=== PATIENT | male | born 1940 | race Hispanic/Latino ===

== ENCOUNTER 2017-06-28 19:27 | Inpatient (IN) | payer MEDICARE ==
[2017-06-28 19:37] VITALS: BMI 23.2
[2017-06-28] MEDS ORDERED: Sodium Chloride 0.9% 1,000 ML IV ONE (19:40)
[2017-06-28] MEDS ORDERED: Cefepime IV 1 gm in Dextrose 1 GM/50 ML BAG IVPB STA (19:48)
[2017-06-28] MEDS ORDERED: Ciprofloxacin 400mg/200ml D5W 400 MG/200 ML BAG IV STA (19:49)
[2017-06-28] MEDS ORDERED: Vancomycin 1 GM 1 GM/250 ML BAG IV SCH (20:00)
[2017-06-28 20:04] LABS: BASO % 0.1 % (0.0-2.0); EOS # 0.3 K/uL (0.0-0.7); MONO # 1.5 K/uL (0.0-0.8)
[2017-06-28 20:11] LABS: RBC URINE 3 /hpf (0-3); TRANSITIONAL EPITHIAL < 1 /hpf (0-3); URINE BACTERIA RARE (<OCC); URINE BILIRUBIN NEGATIVE (NEGATIVE); URINE BLOOD NEGATIVE (NEGATIVE); URINE COLOR Yellow (YELLOW); URINE GLUCOSE (UA) NORMAL (Normal); URINE KETONE NEGATIVE (NEGATIVE); URINE LEUKOCYTE ESTERASE NEG Leu/uL (Negative); URINE PROTEIN NEGATIVE (NEGATIVE); URINE UROBILINOGEN NORMAL mg/dL (0.2-1.0); WBC URINE 4 /hpf (0-5)
[2017-06-28 20:12] LABS: INR 1.7
[2017-06-28 20:13] LABS: EOS % 0.6 % (0.0-4.0); LYMPH % 4.5 % (20.0-40.0); MEAN CELL VOLUME 82.7 fL (80.0-94.0); MEAN CORPUSCULAR HEMOGLOBIN 27.1 pg (27.0-31.0); MEAN CORPUSCULAR HGB CONC 32.7 g/dL (33.0-37.0); MEAN PLATELET VOLUME 6.9 fL (7.2-11.7); MONO % 3.4 % (0.0-10.0); PLATELET COUNT 643 K/uL (130-400); RED CELL DISTRIBUTION WIDTH 16.9 % (11.5-14.5)
[2017-06-28 20:15] LABS: CHLORIDE 106 mmol/L (98-107); SODIUM 142 mmol/L (132-148)
[2017-06-28 20:16] LABS: WHITE BLOOD COUNT 44.7 K/uL (4.8-10.8)
[2017-06-28 20:17] LABS: ALB/GLOB RATIO 0.8 (1.0-2.1); ALKALINE PHOSPHATASE 199 U/L (38-126); ALT/SGPT 61 U/L (21-72); AST/SGOT 104 U/L (17-59); BILIRUBIN,TOTAL 0.9 mg/dL (0.2-1.3); BLOOD UREA NITROGEN 14 mg/dL (9-20); CARBON DIOXIDE 25 mmol/L (22-30); GFR AFRICAN-AMERICAN > 60; TOTAL PROTEIN 6.6 g/dL (6.3-8.3)
[2017-06-28 20:18] LABS: CALCIUM 8.7 mg/dl (8.6-10.4); GLUCOSE,RANDOM 102 mg/dL (75-110)
--- NOTE | 2017-06-28 20:23 | C.PDOC ---
History Of Present Illness 76 year old male who presents to the ER after he fell from a standing position while on his way into his house. Patient recently spent 2 of the last 3 weeks in [place] for evaluation of widely metastatic primary lung CA and known C2 lesions. Patient was rigoring and tachycardic prior to discharge from [place] this afternoon and fell at home while standing, landing on his buttock and striking the back of his head. Patient arrived via EMS with a c-collar in place and is complaining of neck pain and right groin pain; denies LOC, nausea, or vomiting. - HPI Time Seen by Provider: 06/28/17 19:30 Chief Complaint (Nursing): Trauma History Per: Patient History/Exam Limitations: no limitations Onset/Duration Of Symptoms: Days Injury Occurred (Timing): Just Before Arrival Location Of Injury: Right: Buttock, Left: Buttock, Posterior: Head Recent travel outside of the [place]: No Past Medical History Reviewed: Historical Data, Nursing Documentation, Vital Signs Vital Signs: Last Vital Signs Temp 98.0 F 06/28/17 21:19 Pulse 87 06/28/17 22:33 Resp 23 06/28/17 22:33 BP 77/42 L 06/28/17 22:33 Pulse Ox 94 L 06/28/17 22:33 - Medical History PMH: Atrial Fibrillation Surgical History: No Surg Hx Family History: States: Unknown Family Hx - Social History Hx Alcohol Use: Yes Hx Substance Use: No - Immunization History Hx Tetanus Toxoid Vaccination: Yes Hx Influenza Vaccination: No Hx Pneumococcal Vaccination: No Review Of Systems Constitutional: Negative for: Fever, Chills Gastrointestinal: Negative for: Nausea, Vomiting Genitourinary: Positive for: Other (Groin pain) Musculoskeletal: Positive for: Neck Pain Neurological: Negative for: Weakness, Numbness Physical Exam - Physical Exam Appears: Non-toxic, Other (Elderly. Cachectic) Skin: Normal Color, Warm, Dry Head: Atraumatic, Normacephalic Oral Mucosa: Moist Neck: Normal, No Midline Cervical Tenderness, No Paracervical Tenderness, Supple Chest: Symmetrical, No Tenderness Cardiovascular: Rhythm Regular, No Murmur Respiratory: Decreased Breath Sounds (Left base), No Rales, No Rhonchi, No Wheezing Gastrointestinal/Abdominal: Soft, No Tenderness, Ascites, Other (Thin) Rectal: Deferred (Due to positioning) Extremity: Normal ROM (x4), Other (No lesions to lower extremities) Neurological/Psych: Oriented x3, Normal Speech, Normal Cognition ED Course And Treatment - Laboratory Results Result Diagrams: 06/28/17 19:55 06/28/17 19:55 O2 Sat by Pulse Oximetry: 86 (Room air) - CT Scan/US CT Head Other Rad Studies (CT/US): Read By Radiologist, Radiology Report Reviewed CT/US Interpretation: IMPRESSION: 1. No acute findings. 2. Mild chronic microvascular ischemic change in the deep white matter CT Cervical Spine Other Rad Studies (CT/US): Read By Radiologist, Radiology Report Reviewed CT/US Interpretation: IMPRESSION: 1. Type II fracture of the dens.THIS REPORT CONTAINS FINDINGS THAT MAY BE CRITICAL TO. PATIENT CARE. The findings were verbally communicated via telephone conference with Syeda Ritchie at 9:48 PM EDT on 06/28/2017. The findings were acknowledged and understood. 2. Generalized cervical spondylosis including mild foraminal stenosis on the right at C5-6 and C6-7. CT Abd/Pel Other Rad Studies (CT/US): Read By Radiologist, Radiology Report Reviewed CT/US Interpretation: IMPRESSION: 1 . Fracture of the inferior pubic ramus on the right. 2. 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 3. Soft tissue mass in the lateral aspect of the left thigh suspicious for a metastatic lesion. 4.. Ascites with anasarca. 5. Left lower lobe consolidation with pulmonary parenchymal necrosis/liquefaction and tumor. extension into the left mainstem bronchus. 6. Scatter colonic diverticula CT Chest Other Rad Studies (CT/US): Read By Radiologist, Radiology Report Reviewed CT/US Interpretation: IMPRESSION: 1. Left lower lobe consolidation with evidence of pulmonary parenchymal necrosis and tumor. extension into left mainstem bronchus. 2. Air trapping in the left lung secondary to #1. 3. Interstitial lung disease bilaterally with evidence of interstitial fibrosis. Small bilateral pleural. effusions. Progress Note: CT chest/abd/pel/head/spine, EKG, CXR, and cultures ordered. Tylenol, cefepime, ciprofloxacin, lovenox, toradol, vancomycin, and IV fluids administered. Medical Decision Making Medical Decision Making: sepsis, shaking, rigors, much elevated leukocytosis of 45K without recent chemo/ Neuopogen Broad spectrum abx empirically avoiding PCN allergy New inferior R pubic ramis fx subacute Dens Type II fracture (? lytic lesion/mets, prior eval @ [facility]) keep C-collar in place DNR Consider theraputic L lung paracentesis for symptoms of SOB Disposition Doctor Will See Patient In The: Hospital Counseled Patient/Family Regarding: Studies Performed, Diagnosis - Disposition Disposition: HOSPITALIZED Disposition Time: 21:35 Condition: GUARDED - Clinical Impression Clinical Impression: Pubic ramus fracture, Lung cancer, primary, with metastasis from lung to other site, Sepsis, Cervical spine fracture - Scribe Statement The provider has reviewed the documentation as recorded by the Scribbibiana Desir All medical record entries made by the Scribe were at my direction and personally dictated by me. I have reviewed the chart and agree that the record accurately reflects my personal performance of the history, physical exam, medical decision making, and the department course for this patient. I have also personally directed, reviewed, and agree with the discharge instructions and disposition.
[2017-06-28] MEDS ORDERED: Vancomycin 1 gm/NS 200 ml 1 GM/200 ML BAG IVPB STA (20:25)
[2017-06-28] MEDS ORDERED: Iodixanol 320 MG/ML 100 ML BOTTLE IV ONE (20:29)
[2017-06-28] MEDS ORDERED: Vancomycin 1 GM 1 GM/250 ML BAG IV ONE (20:30)
[2017-06-28 20:31] LABS: VENOUS BLOOD GAS BASE EXCESS -3.2 mmol/L (0.0-2.0); VENOUS BLOOD GAS PCO2 55 mmHg (40-60); VENOUS BLOOD PH 7.26 (7.32-7.43)
[2017-06-28] MEDS ORDERED: Ciprofloxacin 400mg/200ml D5W 400 MG/200 ML BAG IVPB ONE (21:09)
[2017-06-28 21:29] LABS: MYELOCYTE 3 % (0-0); NEUTROPHIL 88 % (50-75); TOTAL CELLS COUNTED 100
[2017-06-28] MEDS ORDERED: Enoxaparin 40 mg Syringe SC STA (21:36)
[2017-06-28] MEDS ORDERED: Vancomycin 1 GM 1 GM/250 ML BAG IVPB ONE (21:44)
--- NOTE | 2017-06-28 21:49 | CT ---
EXAM: CT Cervical Spine Without Intravenous Contrast EXAM DATE/TIME: Exam ordered 06/28/2017 7:42 PM CLINICAL HISTORY: 76 years old, male; Injury or trauma; Fall; Initial encounter; Blunt trauma; Additional info: Lung ca with mets, fell back from standing TECHNIQUE: Axial computed tomography images of the cervical spine without intravenous contrast. All CT scans at this facility use one or more dose reduction techniques, viz.: automated exposure control; ma/kV adjustment per patient size (including targeted exams where dose is matched to indication; i.e. head); or iterative reconstruction technique. Coronal and sagittal reformatted images were created and reviewed. COMPARISON: No relevant prior studies available. FINDINGS: Vertebrae: Unremarkable. No acute fracture. Discs/spinal canal/neural foramina: C1 2: There is narrowing of the joint space between the anterior arch of C1 and the dens. Subchondral sclerosis and marginal osteophyte formation is present. There is beam hardening artifact noted at the level of C1 2 due to dental or fillings. There is a disruption in the cortical margin along the anterior aspect of the dens which suggests a type 2 nondisplaced dens fracture. C2-3: There is narrowing of the intervertebral disc space. There is ankylosis of the facet joints on the left and partial ankylosis on the right. C3-4: There is narrowing of the intervertebral disc space with marginal osteophyte formation, subchondral cyst formation and endplate sclerosis. Minimal circumferential annulus bulge. There is mild uncovertebral hypertrophy. C4-5: Marginal osteophyte formation is noted. Minimal annulus bulge. No stenosis. C5-6: There is narrowing of the intervertebral disc space with him marginal osteophyte formation, endplate sclerosis, subchondral cyst formation and marginal osteophyte formation. There is uncovertebral hypertrophy. There is narrowing of the intervertebral foramen on the right. C6-7: There is narrowing of the intervertebral disc space with endplate sclerosis and subchondral cyst formation. There is uncovertebral hypertrophy. There is narrowing of the intervertebral foramen on the right. No spinal canal stenosis. Soft tissues: Unremarkable. Lung apices: There is biapical pleural thickening. There is thickening of the intralobular septa with interstitial fibrosis evident particularly on the right. IMPRESSION: 1. Type II fracture of the dens.THIS REPORT CONTAINS FINDINGS THAT MAY BE CRITICAL TO PATIENT CARE. The findings were verbally communicated via telephone conference with Norberto Ritchie at 9:48 PM EDT on 06/28/2017. The findings were acknowledged and understood. 2. Generalized cervical spondylosis including mild foraminal stenosis on the right at C5-6 and C6-7. . Images were attached to this report and are available at [email or web address]
[2017-06-28] MEDS ORDERED: Enoxaparin 40 mg Syringe ONE (21:51)
[2017-06-28] MEDS ORDERED: Sodium Chloride 0.9% 1,000 ML IV SCH (22:30)
[2017-06-28 23:01] LABS: VENOUS BLOOD GAS PCO2 36 mmHg (40-60); VENOUS BLOOD PH 7.46 (7.32-7.43)
[2017-06-29] MEDS ORDERED: Ciprofloxacin 400mg/200ml D5W 400 MG/200 ML BAG IVPB SCH (06:00)
[2017-06-29] MEDS ORDERED: metroNIDAZOLE IV 500 mg/100 ml 500 MG/100 ML BAG IVPB SCH (06:15)
[2017-06-29 07:41] LABS: BASO # 0.1 K/uL (0.0-0.2); BASO % 0.4 % (0.0-2.0); EOS # 0.4 K/uL (0.0-0.7); EOS % 1.2 % (0.0-4.0); HEMATOCRIT 24.6 % (35.0-51.0); LYMPH # 1.1 K/uL (1.0-4.3); LYMPH % 3.4 % (20.0-40.0); MEAN CELL VOLUME 81.5 fL (80.0-94.0); MEAN CORPUSCULAR HEMOGLOBIN 26.2 pg (27.0-31.0); MEAN CORPUSCULAR HGB CONC 32.1 g/dL (33.0-37.0); MONO # 1.2 K/uL (0.0-0.8); MONO % 3.7 % (0.0-10.0); PLATELET COUNT 470 K/uL (130-400); RED CELL DISTRIBUTION WIDTH 16.5 % (11.5-14.5)
[2017-06-29 07:52] LABS: ALB/GLOB RATIO 0.7 (1.0-2.1); ALKALINE PHOSPHATASE 123 U/L (38-126); ALT/SGPT 51 U/L (21-72); AST/SGOT 52 U/L (17-59); BILIRUBIN,TOTAL 0.5 mg/dL (0.2-1.3); BLOOD UREA NITROGEN 16 mg/dL (9-20); CALCIUM 7.6 mg/dl (8.6-10.4); CARBON DIOXIDE 22 mmol/L (22-30); CHLORIDE 107 mmol/L (98-107); GFR AFRICAN-AMERICAN > 60; GLUCOSE,RANDOM 78 mg/dL (75-110); POTASSIUM 3.6 mmol/L (3.6-5.2); SODIUM 137 mmol/L (132-148)
--- NOTE | 2017-06-29 08:40 | RAD ---
PROCEDURE: CHEST RADIOGRAPH, 1 VIEW HISTORY: SOB COMPARISON: Chest CT also performed 06/28/2017. FINDINGS: LUNGS: Infiltrate at the right upper lung zone is appreciated with none at the base. The left hemidiaphragms completely silhouetted with hazy density at the mid to inferior left lung zone appearing less dense than expected based on extensive pathology noted in CT here, in what may reflect neoplasm and postobstructive atelectasis. Please see separate CT chest and pelvis report 06/28/2017. PLEURA: No right pleural effusion. A small pleural effusion not excluded. No pneumothorax bilaterally. CARDIOVASCULAR: Cardiac silhouette appears mildly prominent. No pulmonary vascular congestion appreciated. OSSEOUS STRUCTURES: No significant abnormalities. VISUALIZED UPPER ABDOMEN: Normal. OTHER FINDINGS: None. IMPRESSION: Bilateral pulmonary infiltrates identified at the superior right lung zone and at the mid to inferior left lung zone though neoplasm not excluded based on chest CT 06/28/2017 the left base. Please see separate report. No right pleural effusion and minimal left pleural effusion not excluded.
--- NOTE | 2017-06-29 08:51 | CT ---
CT chest, abdomen, and pelvis with IV contrast Indication: Widely metastatic lung cancer Technique: Contiguous axial images of the chest, abdomen, and pelvis. Coronal and Sagittal reformats generated and reviewed. This CT exam was performed using 1 or more of the following dose reduction techniques: Automated exposure control, adjustment of the MAA and/or kV according to patient size, and/or use of iterative reconstruction technique. Contrast: 100 mL Visipaque 320 IV. Radiation dose: Total exam DLP = 677.24 MGy-cm. Comparison: Chest x-ray performed 06/28/17 Findings: Visualized portions of the inferior thyroid gland demonstrates coarse calcifications in the left lower pole. Partially imaged enlarged vessels within the soft tissues of the neck. The mediastinal and hilar vascular structures appear within normal limits. The heart appears within normal limits of size. Sub cm enhancing prevascular lymph node. Sub cm mediastinal lymph nodes, nonspecific. Abrupt cut off of the left mainstem bronchus with evidence of tumor extension into the bronchus. Heterogeneous large left lower lobe consolidation with regions of suspected necrosis/liquefaction. Hyperlucency within the left upper lobe and lingula as compared to the right. Interlobular septal thickening. Peripheral fibrotic changes bilaterally. Paraseptal type emphysema within the right medial upper lobe. Right middle lobe fibrotic changes. Small bilateral pleural effusions. No pneumothorax. Examination limited by patient motion as well as paucity of intra-abdominal and intrapelvic fat. 3.3 cm right adrenal mass appears heterogeneous with region of possible necrosis, indeterminate but worrisome for metastatic disease. The left adrenal gland appears unremarkable. Fatty atrophy of the pancreas. Distended gallbladder. No calcified gallstones evident. Hypoattenuation of the liver compatible with hepatic steatosis. The the spleen appears unremarkable. The kidneys enhance symmetrically. No hydronephrosis or obstructing calculus identified. The stomach is nondistended. The bowel loops appear within normal limits of caliber without evidence of intestinal obstruction. Diverticulosis without CT evidence of acute diverticulitis. There is no definite free air. The prostate gland measures approximately 3.0 x 3.8 x 3.5 cm. Thin probable calcifications within the posterior urinary bladder wall. Pelvic ascites. Aneurysmal dilatation of the bilateral common iliac arteries measuring approximately 2.7 cm on the right and 1.4 cm on the left. Inferior right pubic ramus fracture. Osseous demineralization. Mild scoliosis of the lumbar spine convex to the left. Multilevel degenerative changes. Heterogeneous soft tissue mass within the lateral upper left thigh and measures approximately 4.6 x 4.5 x 3.9 cm. Anasarca. Impression: Abrupt cut off of the left mainstem bronchus with evidence of tumor extension into the bronchus. Heterogeneous large left lower lobe consolidation with regions of suspected necrosis/liquefaction. Hyperlucency within the left upper lobe and lingula as compared to the right. Interlobular septal thickening. Peripheral fibrotic changes bilaterally. Paraseptal type emphysema within the right medial upper lobe. Right middle lobe fibrotic changes. Small bilateral pleural effusions. Multiple coarse calcifications in the left lower pole thyroid gland. Outpatient thyroid ultrasound may be considered for further evaluation if indicated. Sub cm enhancing prevascular lymph node. Sub cm mediastinal lymph nodes, nonspecific. 3.3 cm right adrenal mass appears heterogeneous with region of possible necrosis, indeterminate but worrisome for metastatic disease. Hepatic steatosis. Distended gallbladder. No calcified gallstones evident. Right upper quadrant ultrasound may be considered if indicated. Diverticulosis without CT evidence of acute diverticulitis. Pelvic ascites. Aneurysmal dilatation of the bilateral common iliac arteries measuring approximately 2.7 cm on the right and 1.4 cm on the left. Inferior right pubic ramus fracture. Heterogeneous soft tissue mass within the lateral upper left thigh and measures approximately 4.6 x 4.5 x 3.9 cm. Anasarca. Additional findings as above. Preliminary impression was provided by virtual radiologic.
[2017-06-29] MEDS: Ciprofloxacin 400mg/200ml D5W 400 MG/200 ML BAG IVPB SCH ×2 (09:00→20:53)
[2017-06-29 09:42] LABS: EOSINOPHIL 3 % (0-4); NEUTROPHIL 86 % (50-75); TOTAL CELLS COUNTED 100
[2017-06-29 09:46] LABS: METAMYELOCYTE 1 % (0-0); MYELOCYTE 1 % (0-0)
--- NOTE | 2017-06-29 09:48 | CT ---
PROCEDURE: CT HEAD WITHOUT CONTRAST. HISTORY: lung CA with mets, fell from standing, occipital COMPARISON: None available. TECHNIQUE: Axial computed tomography images were obtained through the head/brain without intravenous contrast. Radiation dose: Total exam DLP = 1361 mGy-cm. This CT exam was performed using one or more of the following dose reduction techniques: Automated exposure control, adjustment of the mA and/or kV according to patient size, and/or use of iterative reconstruction technique. FINDINGS: HEMORRHAGE: No intracranial hemorrhage. BRAIN: Mild expansion of the sulci and cisterns compatible diffuse cerebral atrophy. Trace chronic microangiopathy seen the periventricular white matter somewhat. There is no mass effect or suspicious extra-axial fluid collection identified. No definite medullary cortical edema is appreciated however if intracranial metastasis are suspected, then follow-up CT with contrast or MRI with and without contrast is advised. VENTRICLES: Unremarkable. No hydrocephalus. CALVARIUM: Unremarkable. PARANASAL SINUSES: Unremarkable as visualized. No significant inflammatory changes. MASTOID AIR CELLS: Unremarkable as visualized. No inflammatory changes. OTHER FINDINGS: None. IMPRESSION: Mild age related neuro degenerative changes are age-appropriate. No acute intracranial findings by standard CT criteria. Follow-up CT or MRI is available including with contrast if needed.
[2017-06-29] MEDS: Enoxaparin 40 mg Syringe SC SCH (10:14)
[2017-06-29] MEDS: Sodium Chloride 0.9% 1,000 ML IV SCH (10:16)
[2017-06-29] MEDS: metroNIDAZOLE IV 500 mg/100 ml 500 MG/100 ML BAG IVPB SCH ×2 (10:16→18:17)
[2017-06-29] MEDS: Metoprolol Succinate 25 mg XL Tab PO SCH (10:17)
--- NOTE | 2017-06-29 14:57 | CP.PCM.CON ---
History of Present Illness - History of Present Illness History of Present Illness: 76 year old male who presents to the ER after he fell from a standing position while on his way into his house. 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 Patient was having rigors and tachycardic prior to discharge from [place] and fell at home while standing, landing on his buttock and striking the back of his head. Patient arrived via EMS with a c-collar in place and is complaining of neck pain and right groin pain; denies LOC, nausea, or vomiting. IV antibiotics [id number] empirically PMH - squamous cell Ca Lung , mets to brain, spine Review of Systems - Review of Systems All systems: reviewed and no additional remarkable complaints except - Constitutional Constitutional: As Per HPI, Anorexia, Chills, Fever, Frequent Falls, Malaise, Weight Loss, Weakness - EENT Eyes: absent: As Per HPI, Blind Spots, Blurred Vision, Change in Vision, Decreased Night Vision, Diplopia, Discharge, Dry Eye, Exophthalmos, Floaters, Irritation, Itchy Eyes, Loss of Peripheral Vision, Pain, Photophobia, Requires Corrective Lenses, Sees Flashes, Spots in Vision, Tunnel Vision, Other Visual Disturbances, Loss of Vision, Other Ears: absent: As Per HPI, Decreased Hearing, Ear Discharge, Ear Pain, Tinnitus, Abnormal Hearing, Disequilibrium, Dizziness, Other Nose/Mouth/Throat: absent: As Per HPI, Epistaxis, Nasal Congestion, Nasal Discharge, Nasal Obstruction, Nasal Trauma, Nose Pain, Post Nasal Drip, Sinus Pain, Sinus Pressure, Bleeding Gums, Change in Voice, Dental Pain, Dry Mouth, Dysphagia, Halitosis, Hoarsness, Lip Swelling, Mouth Lesions, Mouth Pain, Odynophagia, Sore Throat, Throat Swelling, Tongue Swelling, Facial Pain, Neck Pain, Neck Mass, Other - Cardiovascular Cardiovascular: absent: As Per HPI, Acrocyanosis, Chest Pain, Chest Pain at Rest , Chest Pain with Activity, Claudication, Diaphoresis, Dyspnea, Dyspnea on Exertion, Edema, Irregular Heart Rhythm, Pain Radiating to Arm/Neck/Jaw, Leg Edema, Leg Ulcers, Lightheadedness, Orthopnea, Palpitations, Paroxysmal Nocturnal Dyspnea, Pedal Edema, Radiating Pain, Rapid Heart Rate, Slow Heart Rate, Syncope, Other - Respiratory Respiratory: As Per HPI, Cough, Dyspnea - Gastrointestinal Gastrointestinal: absent: As Per HPI, Abdominal Pain, Belching, Bloating, Change in Bowel Habits, Change in Stool Character, Coffee Ground Emesis, Constipation, Cramping, Diarrhea, Dyspepsia, Dysphagia, Early Satiety, Excessive Flatus, Fecal Incontinence, Heartburn, Hematemesis, Hematochezia, Loose Stools, Melena, Nausea, Odynophagia, Temesmus, Vomiting, Other - Genitourinary Genitourinary: absent: As Per HPI, Change in Urinary Stream, Difficulty Urinating, Dysuria, Flank Pain, Hematuria, Pyuria, Nocturia, Urinary Incontinence, Urinary Frequency, Urinary Hesitance, Urinary Urgency, Voiding Freq/Small Amts, Freq UTI, Hx Renal/Bladder Calculi, Hx /Renal Surgery, Bladder Distension, Other - Musculoskeletal Musculoskeletal: As Per HPI, Arthralgias, Limited Range of Motion, Muscle Weakness - Integumentary Integumentary: absent: As Per HPI, Acne, Alopecia, Bleeding Lesions, Change in Hair, Change in Nails, Change in Pigmentation, Changing Lesions, Dry Skin, Erythema, Furuncle, Hirsutism, Lesions, New Lesions, Non-Healing Lesions, Photosensitivity, Pruritus, Rash, Skin Pain, Skin Ulcer, Sores, Striae, Swelling , Unusual Bruising, Wounds, Jaundice, Other - Neurological Neurological: As Per HPI - Psychiatric Psychiatric: absent: As Per HPI, Abnormal Sleep Pattern, Anhedonia, Anxiety, Auditory Hallucinations, Behavioral Changes, Change in Appetite, Change in Libido, Confusion, Depression, Difficulty Concentrating, Hallucinations, Homicidal Ideation, Hopelessness, Irritability, Memory Loss, Mood Swings, Panic Attacks, Paranoia, Suicidal Ideation, Visual Hallucinations, Tactile Hallucinations, Other - Endocrine Endocrine: absent: As Per HPI, Change in Body Appearance, Change in Libido, Cold Intolorance, Deepening of Voice, Excessive Sweating, Fatigue, Flushing, Heat Intolorance, Increase in Ring/Shoe/Hat Size, Palpitations, Polydipsia, Polyphagia, Polyuria, Other - Hematologic/Lymphatic Hematologic: absent: As Per HPI, Easy Bleeding, Easy Bruising, Lymphadenopathy, Other Past Patient History - Past Social History Smoking Status: Former Smoker - CARDIAC Hx Atrial Fibrillation: Yes - HEMATOLOGICAL/ONCOLOGICAL Hx Cancer: Yes (Lung Cancer wit Mets) - INTEGUMENTARY Other/Comment: tumor/ulcer left hip - MUSCULOSKELETAL/RHEUMATOLOGICAL Hx Falls: Yes - PSYCHIATRIC Hx Substance Use: No - ANESTHESIA Hx Anesthesia: Yes Hx Anesthesia Reactions: No Meds Allergies/Adverse Reactions: Allergies Allergy/AdvReac Type Severity Reaction Status Date / Time Penicillins Allergy Verified 06/28/17 21:05 - Medications Medications: Current Medications Enoxaparin Sodium (Lovenox) 40 mg SC DAILY [facility] Last Admin: 06/29/17 10:14 Dose: 40 mg Ferrous Gluconate (Fergon) 324 mg PO TID [facility] Last Admin: 06/29/17 13:46 Dose: 324 mg Folic Acid (Folic Acid) 1 mg PO DAILY [facility] Last Admin: 06/29/17 10:14 Dose: 1 mg Hydroxyzine HCl (Atarax) 50 mg PO TID [facility] Last Admin: 06/29/17 13:46 Dose: 50 mg Vancomycin HCl 1,000 mg/ (Sodium Chloride) 250 mls @ 166.6 mls/hr IVPB Q12H [facility] Last Admin: 06/29/17 06:44 Dose: 166.6 mls/hr Sodium Chloride (Sodium Chloride 0.9%) 1,000 mls @ 100 mls/hr IV .Q10H [facility] Last Admin: 06/29/17 10:16 Dose: 100 mls/hr Sodium Chloride (Sodium Chloride 0.9%) 1,000 mls @ 70 mls/hr IV .[id number] [facility] Ciprofloxacin (Cipro 400mg/200ml Dsw) 400 mg in 200 mls @ 133 mls/hr IVPB Q12H [facility] Last Admin: 06/29/17 09:00 Dose: 133 mls/hr Metronidazole (Flagyl) 500 mg in 100 mls @ 100 mls/hr IVPB Q8H [facility] Last Admin: 06/29/17 10:16 Dose: 100 mls/hr Lorazepam (Ativan) 0.5 mg IVP TID PRN PRN Reason: Anxiety Metoprolol Succinate (Toprol Xl) 25 mg PO DAILY [facility] Last Admin: 06/29/17 10:17 Dose: Not Given Ondansetron HCl (Zofran Tab) 8 mg PO Q8 [facility] Last Admin: 06/29/17 13:46 Dose: Not Given Oxycodone/Acetaminophen (Percocet 5/325 Mg Tab) 1 tab PO Q4H PRN PRN Reason: Pain, moderate (4-7) Stop: 07/02/17 06:00 Physical Exam - Constitutional Appears: Non-toxic, Cachectic, Chronically Ill - Head Exam Head Exam: ATRAUMATIC, NORMAL INSPECTION, NORMOCEPHALIC - Eye Exam Eye Exam: EOMI, PERRL. absent: Scleral icterus - ENT Exam ENT Exam: Mucous Membranes Dry, Normal External Ear Exam, Normal Oropharynx - Neck Exam Neck exam: Negative for: Lymphadenopathy, Thyromegaly - Respiratory Exam Respiratory Exam: Decreased Breath Sounds, Rhonchi - Cardiovascular Exam Cardiovascular Exam: REGULAR RHYTHM, +S1, +S2 - GI/Abdominal Exam GI & Abdominal Exam: Diminished Bowel Sounds, Soft. absent: Tenderness - Rectal Exam Rectal Exam: Deferred - Exam Exam: NORMAL INSPECTION - Extremities Exam Extremities exam: Positive for: pedal pulses present. Negative for: calf tenderness, pedal edema, tenderness - Back Exam Back exam: absent: CVA tenderness (L), CVA tenderness (R) - Neurological Exam Neurological exam: Alert, CN II-XII Intact, Oriented x3, Reflexes Normal - Psychiatric Exam Psychiatric exam: Depressed - Skin Skin Exam: Dry Results - Vital Signs Recent Vital Signs: Last Vital Signs Temp 97.7 F 06/29/17 08:48 Pulse 76 06/29/17 08:48 Resp 20 06/29/17 08:48 BP 100/59 L 06/29/17 08:48 Pulse Ox 95 06/29/17 08:48 - Labs Result Diagrams: 06/29/17 07:30 06/29/17 07:30 Labs: Laboratory Results - last 24 hr 06/29/17 06/29/17 07:30 07:30 WBC 33.0 H RBC 3.02 L Hgb 7.9 L Hct 24.6 L MCV 81.5 MCH 26.2 L MCHC 32.1 L RDW 16.5 H Plt Count 470 H D MPV 7.0 L Neut % (Auto) 91.3 H Lymph % (Auto) 3.4 L [place] % (Auto) 3.7 Eos % (Auto) 1.2 Baso % (Auto) 0.4 Neut # 30.1 H Lymph # 1.1 [place] # 1.2 H Eos # 0.4 Baso # 0.1 Neutrophils % (Manual) 86 H Band Neutrophils % 4 H Lymphocytes % (Manual) 2 L Monocytes % (Manual) 3 Eosinophils % (Manual) 3 Metamyelocytes % 1 H Myelocytes % 1 H Platelet Estimate Slightly increased H Polychromasia Slight Hypochromasia (manual) Slight Poikilocytosis (manual Slight Anisocytosis (manual) Slight Microcytosis (manual) Slight Macrocytosis (manual) Slight Ovalocytes Slight Sodium 137 Potassium 3.6 Chloride 107 Carbon Dioxide 22 Anion Gap 12 BUN 16 Creatinine 0.6 L Est GFR ( Amer) > 60 Est GFR (Non-Af Amer) > 60 Random Glucose 78 Calcium 7.6 L Total Bilirubin 0.5 AST 52 ALT 51 Alkaline Phosphatase 123 Total Protein 5.0 L Albumin 2.0 L D Globulin 3.0 Albumin/Globulin Ratio 0.7 L Assessment & Plan (1) Cervical spine fracture Status: Acute (2) Lung cancer, primary, with metastasis from lung to other site Status: Acute (3) Pubic ramus fracture Status: Acute (4) Sepsis Status: Acute - Assessment and Plan (Free Text) Assessment: fx dens sepsis pneumonia ca lung cont iv rx supportive care
[2017-06-29] MEDS: Oxycodone/Acetaminophen 5/325 mg Tab PO PRN (22:22)
--- NOTE | 2017-06-29 23:50 | CP.PCM.HP ---
Past Patient History - Past Social History Smoking Status: Former Smoker - CARDIAC Hx Atrial Fibrillation: Yes - HEMATOLOGICAL/ONCOLOGICAL Hx Cancer: Yes (Lung Cancer wit Mets) - INTEGUMENTARY Other/Comment: tumor/ulcer left hip - MUSCULOSKELETAL/RHEUMATOLOGICAL Hx Falls: Yes - PSYCHIATRIC Hx Substance Use: No - ANESTHESIA Hx Anesthesia: Yes Hx Anesthesia Reactions: No Meds Allergies/Adverse Reactions: Allergies Allergy/AdvReac Type Severity Reaction Status Date / Time Penicillins Allergy Verified 06/28/17 21:05 Results - Vital Signs Recent Vital Signs: Last Vital Signs Temp 98.6 F 06/29/17 15:00 Pulse 79 06/29/17 16:00 Resp 20 06/29/17 15:00 BP 92/54 L 06/29/17 15:00 Pulse Ox 94 L 06/29/17 15:00 - Labs Result Diagrams: 06/29/17 07:30 06/29/17 07:30 Labs: Laboratory Results - last 24 hr 06/29/17 06/29/17 07:30 07:30 WBC 33.0 H RBC 3.02 L Hgb 7.9 L Hct 24.6 L MCV 81.5 MCH 26.2 L MCHC 32.1 L RDW 16.5 H Plt Count 470 H D MPV 7.0 L Neut % (Auto) 91.3 H Lymph % (Auto) 3.4 L Bartholomew % (Auto) 3.7 Eos % (Auto) 1.2 Baso % (Auto) 0.4 Neut # 30.1 H Lymph # 1.1 Bartholomew # 1.2 H Eos # 0.4 Baso # 0.1 Neutrophils % (Manual) 86 H Band Neutrophils % 4 H Lymphocytes % (Manual) 2 L Monocytes % (Manual) 3 Eosinophils % (Manual) 3 Metamyelocytes % 1 H Myelocytes % 1 H Platelet Estimate Slightly increased H Polychromasia Slight Hypochromasia (manual) Slight Poikilocytosis (manual Slight Anisocytosis (manual) Slight Microcytosis (manual) Slight Macrocytosis (manual) Slight Ovalocytes Slight Sodium 137 Potassium 3.6 Chloride 107 Carbon Dioxide 22 Anion Gap 12 BUN 16 Creatinine 0.6 L Est GFR ( Amer) > 60 Est GFR (Non-Af Amer) > 60 Random Glucose 78 Calcium 7.6 L Total Bilirubin 0.5 AST 52 ALT 51 Alkaline Phosphatase 123 Total Protein 5.0 L Albumin 2.0 L D Globulin 3.0 Albumin/Globulin Ratio 0.7 L
[2017-06-30] MEDS: metroNIDAZOLE IV 500 mg/100 ml 500 MG/100 ML BAG IVPB SCH ×3 (01:35→17:07)
[2017-06-30] MEDS: Sodium Chloride 0.9% 1,000 ML IV SCH ×2 (01:39→20:52)
[2017-06-30] MEDS ORDERED: Albuterol-Ipratrop 3 mg / 0.5 (3 ml) UD INH STA (03:05)
--- NOTE | 2017-06-30 03:05 | PCM.RRT ---
I.Reason for DISPOSITION CLERK - A) Acute Change in Patient: (Select all that apply): Acute change in SpO2 less Subjective: DISPOSITION CLERK was called at 2:07am due to complaints of SOB and SP02 of 68%. As per nurse , patient was just given 0.5mg of Ativan, 30 minutes before the DISPOSITION CLERK was called. While, patient's nasal cannula was increased from 2L to 5L, leading to SP02 increase to 71%. Patient continued to be anxious. A non-rebreather mask was placed on, which then yield a SP02 of 84%. A combination of 6L NC with non- rebreather mask, which then yield a SP02 of 91%. All other vitals remained WNL during this event. - Respiratory Oxygen Delivery Method: Nasal Cannula @L/min, Non Rebreather @% - Constitutional Additional Comments: Mild NAD, Anxious - Head Head Exam: ATRAUMATIC - Eyes Eye Exam: EOMI, Normal appearance - Respiratory Exam Respiratory Exam: Rales - Cardiovascular Exam Cardiovascular Exam: Tachycardia, REGULAR RHYTHM, +S1, +S2 - GI/Abdominal Exam GI & Abdominal Exam: Soft, Normal Bowel Sounds - Neurological Exam Neurological Exam: Alert, Awake Plan - Assessment of Findings&Treatment Plan Patient is a 76 year old male with DISPOSITION CLERK called at 2:07 am for SOB and oxygen desaturation: * Continue with NC and non-rebreather mask * Continue with duoneb breathing treatment as needed * Monitor O2 saturation closely * PMD was notified
[2017-06-30] MEDS: Ciprofloxacin 400mg/200ml D5W 400 MG/200 ML BAG IVPB SCH ×2 (08:41→20:55)
--- NOTE | 2017-06-30 08:54 | CP.PCM.PN ---
Subjective - Date & Time of Evaluation Date of Evaluation: 06/30/17 Time of Evaluation: 08:15 - Subjective Subjective: House Doctor Page House doctor paged for patient desaturing in the 70s. Patient put on nasal canula and non rebreather mask which brought up patient's O2 overnight however patient stayed in the 70s. Highest 02 saturation came up to 80%. Bipap was placed and 02 sat increased to 91%. Objective - Vital Signs/Intake and Output Vital Signs (last 24 hours): Temp Pulse Resp BP Pulse Ox 97.8 F 113 H 18 128/65 82 L 06/30/17 07:10 06/30/17 07:10 06/30/17 07:10 06/30/17 07:10 06/30/17 07:10 Intake and Output: 06/30/17 06/30/17 06:59 18:59 Intake Total 1720 Output Total 1700 Balance 20 - Medications Medications: Current Medications Enoxaparin Sodium (Lovenox) 40 mg SC DAILY [facility] Last Admin: 06/29/17 10:14 Dose: 40 mg Ferrous Gluconate (Fergon) 324 mg PO TID [facility] Last Admin: 06/29/17 18:18 Dose: 324 mg Folic Acid (Folic Acid) 1 mg PO DAILY [facility] Last Admin: 06/29/17 10:14 Dose: 1 mg Vancomycin HCl 1,000 mg/ (Sodium Chloride) 250 mls @ 166.6 mls/hr IVPB Q12H [facility] Last Admin: 06/30/17 06:18 Dose: 166.6 mls/hr Sodium Chloride (Sodium Chloride 0.9%) 1,000 mls @ 100 mls/hr IV .Q10H [facility] Last Admin: 06/30/17 01:39 Dose: 100 mls/hr Sodium Chloride (Sodium Chloride 0.9%) 1,000 mls @ 70 mls/hr IV .[id number] [facility] Ciprofloxacin (Cipro 400mg/200ml Dsw) 400 mg in 200 mls @ 133 mls/hr IVPB Q12H [facility] Last Admin: 06/30/17 08:41 Dose: 133 mls/hr Metronidazole (Flagyl) 500 mg in 100 mls @ 100 mls/hr IVPB Q8H [facility] Last Admin: 06/30/17 01:35 Dose: 100 mls/hr Lorazepam (Ativan) 0.5 mg IVP TID PRN PRN Reason: Anxiety Last Admin: 06/30/17 01:33 Dose: 0.5 mg Metoprolol Succinate (Toprol Xl) 25 mg PO DAILY [facility] Last Admin: 06/29/17 10:17 Dose: Not Given Ondansetron HCl (Zofran Tab) 8 mg PO Q8 [facility] Last Admin: 06/29/17 22:08 Dose: Not Given Oxycodone/Acetaminophen (Percocet 5/325 Mg Tab) 1 tab PO Q4H PRN PRN Reason: Pain, moderate (4-7) Stop: 07/02/17 06:00 Last Admin: 06/29/17 22:22 Dose: 1 tab - Labs Labs: 06/29/17 07:30 06/29/17 07:30 PT 19.5 SECONDS (9.7-12.2) H 06/28/17 19:55 INR 1.7 06/28/17 19:55 APTT 48 SECONDS (21-34) H 06/28/17 19:55 - Constitutional Appears: Chronically Ill - Respiratory Exam Respiratory Exam: Clear to Ausculation Bilateral, Respiratory Distress - Cardiovascular Exam Cardiovascular Exam: Tachycardia - Psychiatric Exam Psychiatric exam: Anxious
--- NOTE | 2017-06-30 09:56 | RAD ---
HISTORY: desaturation, needing bipap COMPARISON: Portable chest 06/28/2017. FINDINGS: LUNGS: The left hemithorax is completely opacified suggesting postobstructive atelectasis. . Differential diagnosis would include worsening pneumonia or marked left pleural effusion. Further clinical correlation is advised. For Further, increased reticular markings and ground-glass opacity is seen with infiltrate at the right lung suspicious for potential CHF though worsened pneumonia is favored. No right pleural effusion. No pneumothorax bilaterally. Cardiac silhouette is completely obscured and shifted to with the left due to left-sided atelectasis. Tracheal position is rotated toward the left. PLEURA: As per above. CARDIOVASCULAR: As above. OSSEOUS STRUCTURES: No significant abnormalities. VISUALIZED UPPER ABDOMEN: Normal. OTHER FINDINGS: None. IMPRESSION: Extensive postobstructive atelectasis favored over other etiologies of left chest. Further clinical correlation is advised. Worsening right-sided pneumonia likely though CHF is not excluded. Findings discussed with Dr. Bradford by telephone at 06/30/2017 9:45 a.m..
[2017-06-30] MEDS: Enoxaparin 40 mg Syringe SC SCH (10:47)
[2017-06-30] MEDS: Metoprolol Succinate 25 mg XL Tab PO SCH (10:47)
--- NOTE | 2017-06-30 11:09 | HP ---
CHIEF COMPLAINT: Fall. HISTORY OF PRESENT ILLNESS: This is a 76-year-old white male who came to emergency room as he sustained fall. 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 He was initially screened and then he was found to have fracture of the pelvic rim and cervical spine and the patient was placed in a cervical collar and hospitalized. Currently, he is in the bed. He has pain when he moves and the patient has been having rigors, tachycardia. He denies any fever, chills. He gets dizzy when he stands up. According to him at home, when he fell, he fell on the buttocks and also he hit back of his head. He had neck pain and back pain. The patient denies any dysuria, hematuria, polyuria. He denies any abdominal pain, nausea, vomiting, or diarrhea. There is cough and congestion, and according to the patient, he is known to have high white cell count as well. The patient is very knowledgeable about his condition as he denies taking any recent chemotherapy. He denies any history of diarrhea. He denies any history of poor oral intake. He denies any history of chest pain. He has weakness, dizziness, but he denies any palpitations. PAST MEDICAL HISTORY: Atrial fibrillation, lung cancer. SOCIAL HISTORY: Nonsmoker. Social EtOH user. CURRENT MEDICATIONS: Ferrous gluconate, Toprol-XL, Zofran, Vistaril, and folic acid. PHYSICAL EXAMINATION GENERAL: This is an elderly male who is chronically sick. He is cachectic. He is weak. HEENT: Atraumatic and normocephalic. Positive pallor. Negative jaundice. Extraocular movements are intact. SKIN: Flushed, dry. NECK: Supple. Flat neck veins. No JVD. No lymph node. No thyromegaly. No carotid bruits. CHEST: Chest wall bilaterally symmetrical expansion. LUNGS: Bilateral diffuse air entry. Bilateral rales. No rhonchi. CARDIOVASCULAR: S1 and S2 regular, tachycardic. ABDOMEN: Soft, nontender. Bowel sounds positive. RECTAL AND PELVIC: Deferred as the patient is immobile. CENTRAL NERVOUS SYSTEM: The patient is awake, alert and oriented x3. Unable to check strength . ASSESSMENT: 1. Fall with fracture of pelvic rim and cervical spine fracture. 2. Dehydration. 3. High WBC count, rule out sepsis. The patient has bilateral lung infiltrates which could be tumor itself or tumor with postobstructive pneumonia. 4. Anemia due to chronic bleeding. PLAN: Admit, labs have been reviewed, seen and examined. Baldo Wasserman MD
[2017-06-30] MEDS: Oxycodone/Acetaminophen 5/325 mg Tab PO PRN (18:36)
[2017-07-01] MEDS: Sodium Chloride 0.9% 1,000 ML IV SCH (01:15)
[2017-07-01] MEDS: metroNIDAZOLE IV 500 mg/100 ml 500 MG/100 ML BAG IVPB SCH (01:30)
[2017-07-01] MEDS: Oxycodone/Acetaminophen 5/325 mg Tab PO PRN (03:20)
[2017-07-01] MEDS ORDERED: Calcium Gluconate 4.65 mEq/10 ml Inj ONE (06:34)
[2017-07-01] MEDS ORDERED: Sodium Bicarbonate (8.4%) 50 Meq Syringe ONE (06:34)
--- NOTE | 2017-07-01 06:46 | PCM.RRT ---
AUTOMOTIVE TIRE TESTER Nurses Assessment - Situation AUTOMOTIVE TIRE TESTER Responder Arrival Time: 06:35 Location: Room Number: 671B AUTOMOTIVE TIRE TESTER Reason for Call: Bradycardia, Respiratory Distress AUTOMOTIVE TIRE TESTER Called By: RN - IV IV Inserted during AUTOMOTIVE TIRE TESTER?: No - Respiratory Oxygen Delivery Method: BiPAP Received Nebulizer Treatments: No Was the Patient Ventilated with Bag/Mask 100% O2?: No Secretions Suctioned?: No Was the Patient Intubated?: No Was the Patient Placed on a Ventilator?: No - Ventilator Settings FIO2 (% Oxygen): 100 I.Reason for AUTOMOTIVE TIRE TESTER - A) Acute Change in Patient: (Select all that apply): Acute change in SpO2 less - Neurological Status (Select all that apply): Lethargic. absent: Responsive - Respiratory Oxygen Delivery Method: BiPAP @%, Non Rebreather @% - Constitutional Appears: In Acute Distress, Chronically Ill - Head Head Exam: ATRAUMATIC, NORMAL INSPECTION, NORMOCEPHALIC - Respiratory Exam Respiratory Exam: Decreased Breath Sounds - Cardiovascular Exam Cardiovascular Exam: Bradycardia - GI/Abdominal Exam GI & Abdominal Exam: Soft - Neurological Exam Neurological Exam: Altered. absent: Oriented x3 - Extremities Exam Extremities Exam: Pedal Edema Plan - Assessment of Findings&Treatment Plan AUTOMOTIVE TIRE TESTER called at for patient in worsening respiratory distress. Patient with known history of lung cancer with mets to cervical spine. Patient noted to have labored breathing despit being on BIPAP therapy. AUTOMOTIVE TIRE TESTER was also called one day prior for similar presentation as well. Epinephrine given at 6:41AM Bicarb given at 6:45AM Dr. Wasserman was notified who was aware of patient's presentation and intended to put patient under comfort care measures but held off in light of holiday weekend. notified. Comfort care measures endorsed to nursing team.
[2017-07-01 07:45] VITALS: PULSE 90
[2017-07-01 08:11] VITALS: TEMP 97.8
--- NOTE | 2017-07-01 08:18 | CP.PCM.PRO ---
Pronouncement of Note - Clinical Findings Physical Exam: No Response Verbal/Painful Stimuli, Absent Peripheral Pulses{ Carotid & Femoral}, Absent Heart & Breath Sounds, No Pupillary Light Reflex, Pupils Fixed & Dilated - Pronouncement Time Time of Pronouncement of : 08:04 - Notifications Pronouncement Notifications: Family Notified Director Of Integrated Marketing Notified: Yes - N.[place]gie Certificate [place]ED[place] Number: [id number] Additional Comments: Pronouncement of at 8:04 AM on 07/01/17 by video game script writer. Attending Physician Dr. Wasserman notified. Absence of pulses, respirations, and pupil response. Unresponsive to painful stimuli. No heart sounds or breath sounds appreciated. present bedside.
[2017-07-01 08:37] VITALS: BP 79/57; RESP 16; O2SAT 69
--- NOTE | 2017-07-02 00:17 | CP.PCM.PN ---
Subjective - Date & Time of Evaluation Date of Evaluation: 06/30/17 - Subjective Subjective: d/w sister and brother, worsening and they are well aware of condition Objective - Vital Signs/Intake and Output Vital Signs (last 24 hours): Temp Pulse Resp BP Pulse Ox 97.8 F 90 16 79/57 L 69 L 07/01/17 05:31 07/01/17 07:43 07/01/17 06:50 07/01/17 06:50 07/01/17 06:50 - Labs Labs: 06/29/17 07:30 06/29/17 07:30 PT 19.5 SECONDS (9.7-12.2) H 06/28/17 19:55 INR 1.7 06/28/17 19:55 APTT 48 SECONDS (21-34) H 06/28/17 19:55 - Constitutional Appears: Older Than Stated Age, Cachectic, Chronically Ill - Head Exam Head Exam: ATRAUMATIC, NORMAL INSPECTION, NORMOCEPHALIC - Eye Exam Eye Exam: Normal appearance Pupil Exam: NORMAL ACCOMODATION, PERRL - ENT Exam ENT Exam: Mucous Membranes Moist, Normal Exam - Neck Exam Neck Exam: Normal Inspection - Respiratory Exam Respiratory Exam: Clear to Ausculation Bilateral, NORMAL BREATHING PATTERN - Cardiovascular Exam Cardiovascular Exam: REGULAR RHYTHM, +S1, +S2 - GI/Abdominal Exam GI & Abdominal Exam: Soft, Normal Bowel Sounds - Rectal Exam Rectal Exam: NORMAL INSPECTION - Extremities Exam Extremities Exam: Normal Capillary Refill, Normal Inspection - Neurological Exam Neurological Exam: Awake Assessment and Plan (1) Dehydration Status: Acute (2) Lung cancer, primary, with metastasis from lung to other site Status: Chronic (3) Pubic ramus fracture Status: Acute (4) Sepsis Status: Acute
--- NOTE | 2017-07-02 00:18 | CP.PCM.DIS ---
Provider - Provider Date of Admission: 06/28/17 22:14 Attending physician: Baldo Wasserman MD Diagnosis - Discharge Diagnosis (1) Dehydration Status: Acute (2) Lung cancer, primary, with metastasis from lung to other site Status: Chronic (3) Pubic ramus fracture Status: Acute (4) Sepsis Status: Acute Hospital Course - Lab Results Lab Results: Most Recent Lab Values WBC 33.0 K/uL (4.8-10.8) H 06/29/17 07:30 RBC 3.02 Mil/uL (4.40-5.90) L 06/29/17 07:30 Hgb 7.9 g/dL (12.0-18.0) L 06/29/17 07:30 Hct 24.6 % (35.0-51.0) L 06/29/17 07:30 MCV 81.5 fL (80.0-94.0) 06/29/17 07:30 MCH 26.2 pg (27.0-31.0) L 06/29/17 07:30 MCHC 32.1 g/dL (33.0-37.0) L 06/29/17 07:30 RDW 16.5 % (11.5-14.5) H 06/29/17 07:30 Plt Count 470 K/uL (130-400) H D 06/29/17 07:30 MPV 7.0 fL (7.2-11.7) L 06/29/17 07:30 Neut % (Auto) 91.3 % (50.0-75.0) H 06/29/17 07:30 Lymph % (Auto) 3.4 % (20.0-40.0) L 06/29/17 07:30 Foster % (Auto) 3.7 % (0.0-10.0) 06/29/17 07:30 Eos % (Auto) 1.2 % (0.0-4.0) 06/29/17 07:30 Baso % (Auto) 0.4 % (0.0-2.0) 06/29/17 07:30 Neut # 30.1 K/uL (1.8-7.0) H 06/29/17 07:30 Lymph # 1.1 K/uL (1.0-4.3) 06/29/17 07:30 Foster # 1.2 K/uL (0.0-0.8) H 06/29/17 07:30 Eos # 0.4 K/uL (0.0-0.7) 06/29/17 07:30 Baso # 0.1 K/uL (0.0-0.2) 06/29/17 07:30 Neutrophils % (Manual) 86 % (50-75) H 06/29/17 07:30 Band Neutrophils % 4 % (0-2) H 06/29/17 07:30 Lymphocytes % (Manual) 2 % (20-40) L 06/29/17 07:30 Monocytes % (Manual) 3 % (0-10) 06/29/17 07:30 Eosinophils % (Manual) 3 % (0-4) 06/29/17 07:30 Metamyelocytes % 1 % (0-0) H 06/29/17 07:30 Myelocytes % 1 % (0-0) H 06/29/17 07:30 Platelet Estimate Slightly increased (NORMAL) H 06/29/17 07:30 Polychromasia Slight 06/29/17 07:30 Hypochromasia (manual) Slight 06/29/17 07:30 Poikilocytosis (manual Slight 06/29/17 07:30 Anisocytosis (manual) Slight 06/29/17 07:30 Microcytosis (manual) Slight 06/29/17 07:30 Macrocytosis (manual) Slight 06/29/17 07:30 Ovalocytes Slight 06/29/17 07:30 PT 19.5 SECONDS (9.7-12.2) H 06/28/17 19:55 INR 1.7 06/28/17 19:55 APTT 48 SECONDS (21-34) H 06/28/17 19:55 pO2 67 mm/Hg (30-55) H 06/28/17 20:55 VBG pH 7.46 (7.32-7.43) H 06/28/17 20:55 VBG pCO2 36 mmHg (40-60) L 06/28/17 20:55 VBG HCO3 26.4 mmol/L 06/28/17 20:55 VBG Total CO2 26.7 mmol/L (22-28) 06/28/17 20:55 VBG O2 Sat (Calc) 98.4 % (40-65) H 06/28/17 20:55 VBG Base Excess 2.0 mmol/L (0.0-2.0) 06/28/17 20:55 VBG Potassium 3.5 mmol/L (3.6-5.2) L 06/28/17 20:55 Sodium 140.0 mmol/l (132-148) 06/28/17 20:55 Chloride 110.0 mmol/L (98-107) H 06/28/17 20:55 Glucose 113 mg/dl (75-110) H 06/28/17 20:55 Lactate 1.0 mmol/L (0.7-2.1) 06/28/17 20:55 Crit Value Called To Er nurse aime 06/28/17 20:20 Crit Value Called By Dora prieto 06/28/17 20:20 Crit Value Read Back Y 06/28/17 20:20 Blood Gas Notified Time 202906/28/17 20:20 Sodium 137 mmol/L (132-148) 06/29/17 07:30 Potassium 3.6 mmol/L (3.6-5.2) 06/29/17 07:30 Chloride 107 mmol/L (98-107) 06/29/17 07:30 Carbon Dioxide 22 mmol/L (22-30) 06/29/17 07:30 Anion Gap 12 (10-20) 06/29/17 07:30 BUN 16 mg/dL (9-20) 06/29/17 07:30 Creatinine 0.6 MG/DL (0.8-1.5) L 06/29/17 07:30 Est GFR ( Amer) > 60 06/29/17 07:30 Est GFR (Non-Af Amer) > 60 06/29/17 07:30 POC Glucose (mg/dL) 166 mg/dL (65-110) H 07/01/17 06:34 Random Glucose 78 mg/dL (75-110) 06/29/17 07:30 Calcium 7.6 mg/dl (8.6-10.4) L 06/29/17 07:30 Total Bilirubin 0.5 mg/dL (0.2-1.3) 06/29/17 07:30 AST 52 U/L (17-59) 06/29/17 07:30 ALT 51 U/L (21-72) 06/29/17 07:30 Alkaline Phosphatase 123 U/L (38-126) 06/29/17 07:30 Troponin I < 0.0120 ng/mL (0.00-0.120) 06/28/17 19:55 NT-Pro-B Natriuret Pep 1410 pg/mL (0-900) H 06/28/17 19:55 Total Protein 5.0 g/dL (6.3-8.3) L 06/29/17 07:30 Albumin 2.0 g/dL (3.5-5.0) L D 06/29/17 07:30 Globulin 3.0 gm/dL (2.2-3.9) 06/29/17 07:30 Albumin/Globulin Ratio 0.7 (1.0-2.1) L 06/29/17 07:30 Venous Blood Potassium 3.5 mmol/L (3.6-5.2) L 06/28/17 20:55 Urine Color Yellow (YELLOW) 06/28/17 19:55 Urine Clarity Clear (Clear) 06/28/17 19:55 Urine pH 5.0 (5.0-8.0) 06/28/17 19:55 Ur Specific Candor 1.013 (1.003-1.030) 06/28/17 19:55 Urine Protein Negative mg/dL (NEGATIVE) 06/28/17 19:55 Urine Glucose (UA) Normal mg/dL (Normal) 06/28/17 19:55 Urine Ketones Negative mg/dL (NEGATIVE) 06/28/17 19:55 Urine Blood Negative (NEGATIVE) 06/28/17 19:55 Urine Nitrate Negative (NEGATIVE) 06/28/17 19:55 Urine Bilirubin Negative (NEGATIVE) 06/28/17 19:55 Urine Urobilinogen Normal mg/dL (0.2-1.0) 06/28/17 19:55 Ur Leukocyte Esterase Neg Nikos/uL (Negative) 06/28/17 19:55 Urine WBC (Auto) 4 /hpf (0-5) 06/28/17 19:55 Urine RBC (Auto) 3 /hpf (0-3) 06/28/17 19:55 Ur Transition Epith Cell < 1 /hpf (0-3) 06/28/17 19:55 Urine Bacteria Rare (<OCC) 06/28/17 19:55 - Hospital Course Hospital Course: admitted with h/o stage 4 ca lung, not on treatment and had a fall with pelvic fracture and is in bed Discharge Exam - Head Exam Head Exam: ATRAUMATIC, NORMAL INSPECTION, NORMOCEPHALIC - Eye Exam Eye Exam: EOMI, Normal appearance Pupil Exam: NORMAL ACCOMODATION, PERRL - Respiratory Exam Respiratory Exam: Clear to PA & Lateral, NORMAL BREATHING PATTERN - Cardiovascular Exam Cardiovascular Exam: REGULAR RHYTHM, +S1, +S2 - GI/Abdominal Exam GI & Abdominal Exam: Normal Bowel Sounds, Unremarkable - Rectal Exam Rectal Exam: NORMAL INSPECTION Discharge Plan - Follow Up Plan Condition: GUARDED Disposition: WITH WITHOUT AUTOPSY
--- NOTE | 2017-07-10 13:33 | CARD ---
APPROVED REPORT EKG Measurement Heart [id number] <Conclusion> Sinus tachycardia Nonspecific ST and T wave abnormality baseline artifacts Abnormal ECG
== END 2017-07-01 13:45 | DRG 871 ==
LOC: C.ER 19:27 → C.9E 22:14 → C.6T 22:54
PROVIDERS: ADMIT Internal Medicine; ATTEND Internal Medicine
PROC: 5A09357 Assistance with Respiratory Ventilation, Less than 24 Consecutive Hours, Continuous Positive Airway Pressure (ICD-10-PCS; principal; 2017-06-30)
DX: A41.9 Sepsis, unspecified organism (principal); J18.8 Other pneumonia, unspecified organism; C79.31 Secondary malignant neoplasm of brain; C79.51 Secondary malignant neoplasm of bone; S32.591A Other specified fracture of right pubis, initial encounter for closed fracture; C34.90 Malignant neoplasm of unspecified part of unspecified bronchus or lung; M48.32 Traumatic spondylopathy, cervical region; I48.91 Unspecified atrial fibrillation; E86.0 Dehydration; R65.20 Severe sepsis without septic shock; W18.30XA Fall on same level, unspecified, initial encounter; Z66 Do not resuscitate; Z87.891 Personal history of nicotine dependence; D50.0 Iron deficiency anemia secondary to blood loss (chronic)